=== PATIENT | male | born 1975 | race Caucasian/White ===

== ENCOUNTER 2018-04-27 19:42 | Emergency (ER) | payer OTHER ==
--- NOTE | 2018-04-27 19:52 | PDOC ---
Rapid Medical Evaluation Time Seen by Provider: 04/27/18 19:49 Medical Evaluation: Allergies Allergy/AdvReac Type Severity Reaction Status Date / Time No Known Allergies Allergy Verified 12/15/13 23:57 04/27/18 19:50 I have performed a brief in-person evaluation of this patient. The patient presents with a chief complaint of: "I have had a cold since Wednesday. " Pertinent physical exam findings: OP- mild erythema. No exudates. Lungs CTAB. I have ordered the following: influenza The patient will proceed to the ED for further evaluation. Discharge Disposition - Diagnosis Cough - Referrals - Patient Instructions - Post Discharge Activity
[2018-04-27 19:54] VITALS: BP 121/81; PULSE 91; TEMP 97.6; BMI 21.9
--- NOTE | 2018-04-27 21:02 | PDOC ---
History of Present Illness - General Chief Complaint: Cold Symptoms Stated Complaint: COLD SYMPTOMS Time Seen by Provider: 04/27/18 19:49 - History of Present Illness Initial Comments: 04/27/18 21:00 43-year-old male with cough 5 days without systemic symptoms Past History - Past Medical History Allergies/Adverse Reactions: Allergies Allergy/AdvReac Type Severity Reaction Status Date / Time No Known Allergies Allergy Verified 04/27/18 19:54 Home Medications: Ambulatory Orders Benztropine Mesylate [Cogentin -] 1 mg PO DAILY 12/08/13 Olanzapine [Zyprexa -] 7.5 mg PO DAILY 12/08/13 Glipizide [Glucotrol -] 2.5 mg PO DAILY@0700 #30 tablet 12/10/13 metFORMIN HCL [Glucophage -] 500 mg PO DAILY@0700 #30 tablet 12/10/13 Furosemide [Lasix -] 20 mg PO DAILY #7 tablet 12/16/13 Anemia: No Asthma: No Cancer: No Cardiac Disorders: No COPD: No Diabetes: Yes Psychiatric Problems: Yes (schizophrenia) - Surgical History Abdominal Surgery: (TESTICULAR) - Suicide/Smoking/Psychosocial Hx Smoking Status: No Smoking History: Never smoked Have you smoked in the past 12 months: No Number of Cigarettes Smoked Daily: 0 Information on smoking cessation initiated: No Hx Alcohol Use: No Drug/Substance Use Hx: No Substance Use Type: None Hx Substance Use Treatment: No Review of Systems - Review of Systems Constitutional: No: Fever Respiratory: Yes: Cough *Physical Exam - Vital Signs Last Vital Signs Temp Pulse Resp BP Pulse Ox 97.6 F 91 H 16 121/81 97 04/27/18 19:52 04/27/18 19:52 04/27/18 19:52 04/27/18 19:52 04/27/18 19:52 - Physical Exam Comments: 04/27/18 21:01 HEAD: NC/AT EYES: Conjuntiva clear Ears: Canals and TM's normal NOSE: No d/c THROAT: Moist mucous membrances, oral pharanx clear, uvula midline NECK: Supple without adenopathy CARDIAC: S1 S2 LUNGS: CTA Full and Equal breath sounds ABDOMEN: Soft NT ND MS: Full ROM in all joints without edema NEUROLOGIC: No gross sensory or motor deficits, NVID SKIN: Normal color and temperature no lesions or rashes Moderate Sedation - Procedure Monitoring Vital Signs: Procedure Monitoring Vital Signs Temperature 97.6 F 04/27/18 19:52 Pulse Rate 91 H 04/27/18 19:52 Respiratory Rate 16 04/27/18 19:52 Blood Pressure 121/81 04/27/18 19:52 O2 Sat by Pulse Oximetry (%) 97 04/27/18 19:52 *DC/Admit/Observation/Transfer Diagnosis at time of Disposition: Cough, Upper respiratory infection - Discharge Dispostion Disposition: HOME Condition at time of disposition: Stable Decision to Admit order: No - Referrals Referrals: Paty Thompson MD [Staff Physician] - - Patient Instructions Printed Discharge Instructions: DI for Viral Upper Respiratory Infection -- Adult Additional Instructions: Return to the emergency room should symptoms worsen or go unresolved. Please follow-up with primary care doctor in 1-2 days for further evaluation and treatment options. - Post Discharge Activity
== END 2018-04-27 21:03 | disposition home or self-care (01) ==
LOC: JERFT 19:42
DX: J06.9 Acute upper respiratory infection, unspecified (principal); E11.9 Type 2 diabetes mellitus without complications; Z79.84 Long term (current) use of oral hypoglycemic drugs
CPT/HCPCS: 87804; 99281-25